=== PATIENT | male | born 1985 | race Caucasian/White ===

== ENCOUNTER 2018-10-03 05:48 | Emergency (ER) | payer OTHER ==
[~2018-10-03] VITALS: Ht 172.7 cm; Wt 90.7 kg
[2018-10-03 06:26] LABS: ABSOLUTE BASOPHILS 0.1 thou/uL (0.0-0.2); ABSOLUTE EOSINOPHILS 0.4 thou/uL (0.0-0.7); ABSOLUTE LYMPHOCYTES 3.6 thou/uL (0.8-5.3); ABSOLUTE MONOCYTES 0.7 thou/uL (0.0-1.2); ABSOLUTE NEUTROPHILS 4.7 thou/uL (1.6-8.1); EOSINOPHILS 4.3 %; HEMOGLOBIN 16.7 gm/dL (14.0-18.0); LYMPHOCYTES 37.7 %; MCH 31.8 pg (26.0-34.0); MCHC 34.7 g/dL (28.0-37.0); MCV 91.5 fL (80.0-100.0); MONOCYTES 7.8 %; MPV 8.9 fl. (7.2-11.1); NUCLEATED RBCS 0 /100WBC; PLATELET COUNT* 235 thou/uL (150-400); POLYS 49.2 %; RBC 5.25 mil/uL (4.50-6.00); RDW-CV 13.2 % (10.5-14.5); WBC 9.6 thou/uL (4.0-11.0)
[2018-10-03 06:31] LABS: CALCIUM 8.9 mg/dL (8.5-10.1); CREATININE 1.1 mg/dL (0.6-1.3); POTASSIUM 3.6 mmol/L (3.5-5.1)
[2018-10-03 07:34] VITALS: BP 102/64
[2018-10-04] MEDS ORDERED: NORCO 5-325 TA1 EACH PO (18:23)
== END 2018-10-03 07:40 | disposition home or self-care (01) ==
LOC: M.ERS 05:48
PROVIDERS: Emergency Medicine
DX: N23 Unspecified renal colic (principal)

== ENCOUNTER 2018-10-04 17:54 | Emergency (ER) | payer OTHER ==
[~2018-10-04] VITALS: Ht 172.7 cm; Wt 97.5 kg
[2018-10-04] MEDS ORDERED: NORCO 5-325 TA1 EACH PO (18:23)
[2018-10-04 18:31] VITALS: BP 132/90
== END 2018-10-04 18:31 | disposition home or self-care (01) ==
LOC: M.ERS 17:54
PROC: 0RSVXZZ Reposition Left Metacarpophalangeal Joint, External Approach (ICD-10-PCS; principal; 2018-10-04)
DX: S63.267A Dislocation of metacarpophalangeal joint of left little finger, initial encounter (principal); F17.210 Nicotine dependence, cigarettes, uncomplicated; W10.9XXA Fall (on) (from) unspecified stairs and steps, initial encounter; Y92.89 Other specified places as the place of occurrence of the external cause; Y93.89 Activity, other specified; Y99.8 Other external cause status

== ENCOUNTER 2020-08-22 11:50 | Emergency (ER) | payer OTHER ==
[~2020-08-22] VITALS: Ht 172.7 cm; Wt 95.3 kg
[~2020-08-22 11:50] MED LIST: NORCO 5-325 TA1 EACH PO
[2020-08-22 12:20] LABS: ABSOLUTE BASOPHILS 0.1 thou/uL (0.0-0.2); ABSOLUTE EOSINOPHILS 0.3 thou/uL (0.0-0.7); ABSOLUTE LYMPHOCYTES 2.5 thou/uL (0.8-5.3); ABSOLUTE MONOCYTES 0.5 thou/uL (0.0-1.2); ABSOLUTE NEUTROPHILS 4.3 thou/uL (1.6-8.1); EOSINOPHILS 3.7 %; HEMATOCRIT 50.4 % (42.0-52.0); HEMOGLOBIN 17.5 gm/dL (14.0-18.0); LYMPHOCYTES 32.7 %; MCH 31.8 pg (26.0-34.0); MCHC 34.7 g/dL (28.0-37.0); MCV 91.5 fL (80.0-100.0); MONOCYTES 6.7 %; MPV 8.3 fl. (7.2-11.1); NUCLEATED RBCS 0 /100WBC; PLATELET COUNT* 222 thou/uL (150-400); POLYS 55.9 %; RDW-CV 13.4 % (10.5-14.5); WBC 7.7 thou/uL (4.0-11.0)
[2020-08-22 12:28] LABS: APTT 25.6 Seconds (25.0-31.3); CALCIUM 9.3 mg/dL (8.5-10.1); POTASSIUM 3.7 mmol/L (3.5-5.1); PROTIME 10.4 Seconds (9.20-11.50)
[2020-08-22 12:42] LABS: ALBUMIN 4.3 g/dL (3.4-5.0); CK-MB MASS 14.3 ng/mL (<0.5-3.6); MAGNESIUM 2.1 mg/dL (1.8-2.4); TOTAL BILIRUBIN 1.1 mg/dL (<0.1-1.0); TOTAL PROTEIN 8.2 g/dL (6.4-8.2)
[2020-08-22 13:19] VITALS: BP 121/80
--- NOTE | 2020-08-23 12:49 | EKG ---
[place] [address] ELECTROCARDIOGRAM REPORT Name: ALYSSA ESPINAL Room: [facility]#: [id number] Admission: 08/22/20 Attend Phys: Discharge: 08/22/20 Date of : 89 Date of Service: 08/22/20 1156 Report #: [id number] THIS REPORT FOR: //name// [facility] ED Test Date: 2020-08-22 Test Time: 11:56:43 Pat Name: ALYSSA ESPINAL Department: Room: Gender: Prizer Hand: : 1985 Requested By: Prakash Nation Order Number: [id number] MD: Doyle Taveras Measurements Intervals [place] Rate: 61 P: 35 MD: 113 QRS: 63 QRSD: 82 T: 58 QT: 408 QTc: 411 Interpretive Statements Sinus rhythm Borderline short MD interval Baseline wander in lead(s) V4 No previous ECG available for comparison Electronically Signed On 08-23-2020 12:49:06 TABLEAU ADMINISTRATOR by Doyle Taveras [email or web address] <ELECTRONICALLY SIGNED> By: Doyle Taveras MD, [facility] 08/23/20 1249 1156 55 Doyle Taveras MD, FAC /EPI
[2020-08-23] MEDS ORDERED: IBUPROFEN 800800 M1 PO (23:42)
== END 2020-08-22 13:20 | disposition home or self-care (01) ==
LOC: M.ERS 11:50
PROVIDERS: Family Medicine
DX: T75.4XXA Electrocution, initial encounter (principal); F17.210 Nicotine dependence, cigarettes, uncomplicated; W86.8XXA Exposure to other electric current, initial encounter; Y93.89 Activity, other specified; Y92.89 Other specified places as the place of occurrence of the external cause; Y99.0 Civilian activity done for income or pay

== ENCOUNTER 2020-08-23 23:31 | Emergency (ER) | payer OTHER ==
[~2020-08-23] VITALS: Ht 172.7 cm; Wt 95.3 kg
[2020-08-23] MEDS ORDERED: IBUPROFEN 800800 M1 PO (23:42)
[2020-08-24 00:12] LABS: HEMATOCRIT 44.7 % (42.0-52.0); MCH 31.9 pg (26.0-34.0); MCHC 34.7 g/dL (28.0-37.0); MCV 91.9 fL (80.0-100.0); MPV 8.2 fl. (7.2-11.1); RBC 4.86 mil/uL (4.50-6.00); RDW-CV 13.3 % (10.5-14.5); WBC 8.5 thou/uL (4.0-11.0)
[2020-08-24 00:18] LABS: HEMOGLOBIN 15.5 gm/dL (14.0-18.0)
[2020-08-24 00:20] LABS: CALCIUM 8.5 mg/dL (8.5-10.1); CREATININE 1.1 mg/dL (0.6-1.3); POTASSIUM 3.8 mmol/L (3.5-5.1)
[2020-08-24 00:25] LABS: ALBUMIN 3.8 g/dL (3.4-5.0); TOTAL BILIRUBIN 0.4 mg/dL (<0.1-1.0); TOTAL PROTEIN 7.4 g/dL (6.4-8.2)
[2020-08-24 01:00] VITALS: BP 120/78
== END 2020-08-24 01:01 | disposition home or self-care (01) ==
LOC: M.ERS 23:31
PROVIDERS: Emergency Medicine Emergency Medical Services
DX: G43.909 Migraine, unspecified, not intractable, without status migrainosus (principal); F17.210 Nicotine dependence, cigarettes, uncomplicated

== ENCOUNTER 2020-10-23 12:35 | Emergency (ER) | payer OTHER, MEDICAID ==
[~2020-10-23] VITALS: Ht 172.7 cm; Wt 72.6 kg
[~2020-10-23 12:35] MED LIST changes: +IBUPROFEN 800800 M1 PO
[2020-10-23 13:13] LABS: CALCIUM 9.6 mg/dL (8.5-10.1); CREATININE 1.1 mg/dL (0.6-1.3); POTASSIUM 3.2 mmol/L (3.5-5.1)
[2020-10-23 14:18] VITALS: BP 125/70
--- NOTE | 2020-10-24 09:39 | EKG ---
[place] [address] ELECTROCARDIOGRAM REPORT Name: ALYSSA ESPINAL Room: 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[facility] : 1985 Requested By: Austyn Mack Order Number: [id number] MD: Óscar Landry Measurements Intervals [place] Rate: 68 P: 47 UT: 102 QRS: 72 QRSD: 79 T: 68 QT: 425 QTc: 453 Interpretive Statements Sinus rhythm Short UT interval Compared to ECG 08/22/2020 11:56:43 No significant changes Electronically Signed On 10-24-2020 9:39:13 SCENIC DESIGNER by Óscar Landry [email or web address] <ELECTRONICALLY SIGNED> By: Óscar Landry MD, [facility] 10/24/20 0939 1245 1245 Óscar Landry MD, [facility] /EPI
== END 2020-10-23 14:18 | disposition home or self-care (01) ==
LOC: M.ERS 12:35
PROVIDERS: Physician Assistant
DX: F15.10 Other stimulant abuse, uncomplicated (principal); R20.0 Anesthesia of skin; R20.2 Paresthesia of skin; F17.210 Nicotine dependence, cigarettes, uncomplicated; Z88.8 Allergy status to other drugs, medicaments and biological substances

== ENCOUNTER 2021-03-18 14:40 | Emergency (ER) | payer OTHER, MEDICAID ==
[~2021-03-18] VITALS: Ht 172.7 cm; Wt 97.5 kg
[2021-03-18] MEDS ORDERED: VISTARIL 25 MG25 M1 PO (15:43)
[2021-03-18 16:17] LABS: ABSOLUTE BASOPHILS 0.1 thou/uL (0.0-0.2); ABSOLUTE LYMPHOCYTES 1.6 thou/uL (0.8-5.3); ABSOLUTE MONOCYTES 0.7 thou/uL (0.0-1.2); ABSOLUTE NEUTROPHILS 7.3 thou/uL (1.6-8.1); BASOPHILS 0.9 %; EOSINOPHILS 0.1 %; HEMATOCRIT 47.1 % (42.0-52.0); HEMOGLOBIN 16.8 gm/dL (14.0-18.0); LYMPHOCYTES 16.6 %; MCH 32.3 pg (26.0-34.0); MCHC 35.6 g/dL (28.0-37.0); MCV 90.8 fL (80.0-100.0); MPV 8.3 fl. (7.2-11.1); NUCLEATED RBCS 0 /100WBC; PLATELET COUNT* 246 thou/uL (150-400); POLYS 75.4 %; RBC 5.19 mil/uL (4.50-6.00); RDW-CV 13.1 % (10.5-14.5); WBC 9.7 thou/uL (4.0-11.0)
[2021-03-18 16:23] LABS: CALCIUM 9.2 mg/dL (8.5-10.1); POTASSIUM 3.5 mmol/L (3.5-5.1)
[2021-03-18 16:28] LABS: ALBUMIN 4.5 g/dL (3.4-5.0); TOTAL BILIRUBIN 1.1 mg/dL (<0.1-1.0); TOTAL PROTEIN 8.2 g/dL (6.4-8.2)
[2021-03-18 17:18] VITALS: BP 122/79
--- NOTE | 2021-03-18 17:47 | EKG ---
[place] [address] ELECTROCARDIOGRAM REPORT Name: ALYSSA ESPINAL Room: 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: : 1985 Requested By: Austyn Mack Order Number: [id number] MD: Doyle Taveras Measurements Intervals [place] Rate: 78 P: 26 CO: 118 QRS: 46 QRSD: 78 T: 33 QT: 403 QTc: 460 Interpretive Statements Sinus rhythm Borderline short [place] interval RSR' in V1 or V2, probably normal variant Compared to ECG 10/23/2020 12:45:31 RSR' in V1 or V2 now present Electronically Signed On 03-18-2021 17:47:36 CDT by Doyle Taveras [email or web address] <ELECTRONICALLY SIGNED> By: Doyle Taveras MD, FACC 03/18/21 1747 1500 1500 Doyle Taveras MD, [facility] /EPI
== END 2021-03-18 17:20 | disposition home or self-care (01) ==
LOC: M.ERS 14:40
PROVIDERS: Physician Assistant
DX: F41.9 Anxiety disorder, unspecified (principal); Z20.822 Contact with and (suspected) exposure to COVID-19; R94.5 Abnormal results of liver function studies; F17.210 Nicotine dependence, cigarettes, uncomplicated

== ENCOUNTER 2021-04-22 06:29 | Emergency (ER) | payer OTHER, MEDICAID ==
[~2021-04-22] VITALS: Ht 172.7 cm; Wt 97.5 kg
[~2021-04-22 06:29] MED LIST changes: +VISTARIL 25 MG25 M1 PO
[2021-04-22] MEDS ORDERED: AMOXICILLIN875 MG PO (06:46)
[2021-04-22] MEDS ORDERED: TRAMADOL 50 MG50 MG PO (06:46)
[2021-04-22 06:54] VITALS: BP 138/82
== END 2021-04-22 06:55 | disposition home or self-care (01) ==
LOC: M.ERS 06:29
DX: K08.89 Other specified disorders of teeth and supporting structures (principal); F17.210 Nicotine dependence, cigarettes, uncomplicated

== ENCOUNTER 2021-06-21 12:49 | Emergency (ER) | payer OTHER, MEDICAID ==
[~2021-06-21] VITALS: Ht 172.7 cm; Wt 98.9 kg
[~2021-06-21 12:49] MED LIST changes: +AMOXICILLIN875 MG PO; +TRAMADOL 50 MG50 MG PO
[2021-06-21 14:18] VITALS: BP 125/82
== END 2021-06-21 14:18 | disposition left against medical advice (07) ==
LOC: M.ERS 12:49
DX: K02.9 Dental caries, unspecified (principal); G89.29 Other chronic pain; F17.210 Nicotine dependence, cigarettes, uncomplicated; Z79.899 Other long term (current) drug therapy